=== PATIENT | male | born 1985 | race Caucasian/White ===

== ENCOUNTER 2017-12-11 08:59 | Day surgery (SDC) | payer OTHER ==
--- NOTE | 2017-12-10 17:03 | HP ---
HISTORY OF PRESENT ILLNESS: Mr. Baez is a 32-year-old man, who presents for evaluation of severe l eft lower extremity pain in L5 fashion as well as numbness over the same distribution. He is startin g to have over the last month, felt pain in the right buttock and hip as well. He has had a microdis kectomy in 05/2016, but had never really improved. He is frustrated as he looks in continued pain an d that stresses him a great deal. He has a repeat MRI now at [facility] that reveals a large left L5 disk which matches the symptoms. He would like to move forward with surgery now if p ossible. PAST MEDICAL HISTORY: Significant for PTSD. PAST SURGICAL HISTORY: Spinal decompression and scalp cyst removal. CURRENT MEDICATIONS: Duloxetine, topiramate, sucralfate, oxycodone, methocarbamol. ALLERGIES: To CODEINE and PENICILLIN. PHYSICAL EXAMINATION: NEUROLOGIC: The patient is alert and oriented x3. Gait is severely antalgic. Lower extremity motor exam is normal. He does have a positive left straight leg raise. ASSESSMENT: Lumbar diskectomy and radiculopathy. PLAN: Dr. Avila met with the patient, reviewed imaging, and ultimately advocated for an L5 diskectom y. He explained to the patient the risks, benefits, and alternatives of the procedure. The patient expressed understanding and would like to move forward with surgery as discussed. I do believe the p atchiquita is mentally competent and capable of making medical decisions for himself. We will move forwa rd with surgery as planned. Jarad Vasquez PA-C dictating for Ramu Avila M.D.
[2017-12-11] MEDS ORDERED: Clindamycin/D5W 900 mg/50 ml Premix Bag ONE (09:35)
[2017-12-11] MEDS ORDERED: Levofloxacin 500 mg/D5W 100 ml Premix Bag ONE (09:35)
[2017-12-11] MEDS ORDERED: Fentanyl 100 MCG/2 ML VIAL ONE ×2 (09:57→13:31)
[2017-12-11] MEDS ORDERED: Lidocaine 1% w/Epinephrine 1:200K 30 ML VIAL ONE (10:54)
[2017-12-11] MEDS ORDERED: Thrombin 5000 UNITS/5 ML VIAL ONE (10:54)
[2017-12-11] MEDS ORDERED: Fentanyl 250 MCG/5 ML VIAL ONE (11:45)
[2017-12-11] MEDS ORDERED: Lidocaine 1% PF 5 ML VIAL ONE (12:37)
[2017-12-11] MEDS ORDERED: Glycopyrrolate 0.2 MG/ML 5 ML SYRINGE ONE (12:37)
[2017-12-11] MEDS ORDERED: Propofol 200 MG/20 ML VIAL ONE (12:37)
[2017-12-11] MEDS ORDERED: PHENYLEPHRINE-NS 100 MCG/ML 10 ML SYRINGE ONE (12:37)
[2017-12-11] MEDS ORDERED: Promethazine HCl 25 MG/ML VIAL ONE (13:40)
[2017-12-11] MEDS ORDERED: Morphine 4 MG/ML VIAL ONE ×2 (13:59→14:51)
[2017-12-11] MEDS ORDERED: Tamsulosin HCl 0.4 MG CAP ONE (14:33)
[2017-12-11] MEDS ORDERED: HYDROcodone/Acetaminophen 7.5/325 mg Tablet ONE (15:24)
[2017-12-11] MEDS ORDERED: Cyclobenzaprine 10 MG TAB ONE (16:06)
--- NOTE | 2017-12-11 17:48 | OP ---
DATE OF PROCEDURE: 12/11/2017 SURGEON: Ramu Avila M.D. [employer] MACHINE OPERATOR: Jarad Vasquez PA-C INDICATION: Pain. DIAGNOSIS: Lumbar radiculopathy. PROCEDURES: Reoperation of left L5 hemilaminectomy, medial facetectomy, decompression. ANESTHESIA: General. TECHNIQUE: The patient was brought into the operating room and placed under general anesthesia. He was flipped from a supine to a prone position on the operating room table. A linear incision was jerrell nned at the location of the old incision and extended inferiorly. After prepping and draping and aft er an appropriate operative pause, the incision was created. Soft tissues were swept left of midline . The patient required very deep retractors secondary to his body habitus. We were able to identify the L5 lamina and evidence of prior surgical defect. A C-arm fluoroscopy was obtained to confirm th e location. A high-speed cutting drill bit as well as 2, 3, and 4-mm Kerrisons were then used to ext end the prior laminectomy defect to remove more lamina as well as more aspects of the medial facet rocio int. The lateral recesses and thecal sac were identified and found to be well decompressed. There w as some scar tissue present. The wound was then irrigated. Hemostasis was maintained throughout. T he wound was then closed in anatomic layers and a pressure dressing was applied. There were no known procedural complications.
== END 2017-12-11 16:25 | disposition home or self-care (01) ==
LOC: SDC 08:59
PROVIDERS: ATTEND Neurological Surgery
PROC: 00NY0ZZ Release Lumbar Spinal Cord, Open Approach (ICD-10-PCS; principal; 2017-12-11)
DX: M54.16 Radiculopathy, lumbar region (principal); F43.10 Post-traumatic stress disorder, unspecified; Z79.891 Long term (current) use of opiate analgesic; Z79.899 Other long term (current) drug therapy; Z88.0 Allergy status to penicillin; Z88.5 Allergy status to narcotic agent; Z98.890 Other specified postprocedural states
CPT/HCPCS: 76001; J1956; J2001; J2270; J2550; J2704; J3010; J3490